=== PATIENT | female | born 2000 | race Caucasian/White ===

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

== ENCOUNTER 2022-12-09 11:56 | Emergency (ER) | payer OTHER ==
[~2022-12-09] VITALS: Ht 160 cm; Wt 72.6 kg
[~2022-12-09 11:56] MED LIST changes: +ONDA4ODT MM
[2022-12-09 12:08] VITALS: BP 130/63
== END 2022-12-09 12:17 | disposition home or self-care (01) ==
LOC: ER 11:56
DX: H04.301 Unspecified dacryocystitis of right lacrimal passage (principal)
CPT/HCPCS: 99282